=== PATIENT | female | born 1955 | race Caucasian/White ===

== ENCOUNTER 2023-02-28 17:24 | Emergency (ER) | payer OTHER, SELFPAY ==
[2023-02-28] VITALS (59 sets, daily range): BP systolic 121–174; BP diastolic 61–96; PULSE 104–121; RESP 13–38; TEMP 37.4–38.1; O2SAT 95–100; BMI 38.2
--- NOTE | 2023-02-28 17:43 | DI.RAD.S_ITS ---
PROCEDURE: XR CHEST 1V INDICATIONS: chest pain TECHNIQUE: One view of the chest was acquired. COMPARISON: None. FINDINGS: Surgical changes and devices: None. Lungs and pleura: Mild blunting of the left costophrenic angle may be secondary to atelectasis or a trace pleural effusion. There is mild bilateral interstitial prominence. No pneumothorax. Mediastinum: Cardiac silhouette is mildly enlarged. Bones and chest wall: No suspicious bony lesions. Overlying soft tissues appear unremarkable. IMPRESSION: Mild cardiomegaly and bilateral interstitial prominence are suspicious for mild edema. Suspected trace left pleural effusion. Approved by: Isaias Tang M.D. on 02/28/2023 at 18:47
[2023-02-28] MEDS: SODIUM CHLORIDE 0.9% 1,000 ML 1000 ML IV (18:09)
[2023-02-28 18:20] LABS: Add Manual Diff / Slide Review NO; Basophils Absolute Auto 100 /uL (0-100); Basophils Percent Auto 1.1 % (0-2); Eosinophils Absolute Auto 200 /uL (0-450); Eosinophils Percent Auto 2.4 % (2-4); Hematocrit 40.7 % (36-46); Hemoglobin 13.6 g/dL (12.0-16.0); Lymphocytes Absolute Auto 1100 /uL (1100-4500); Lymphocytes Percent Auto 14.3 % (25-40); Mean Corpuscular HGB Conc 33.4 % (30-36); Mean Corpuscular Hemoglobin 29.6 PG (26-34); Mean Corpuscular Volume 88.6 fL (80-100); Monocytes Absolute Auto 700 /uL (0-900); Monocytes Percent Auto 8.3 % (3-14); Neutrophils Absolute Auto 5900 /uL (1500-7000); Neutrophils Percent Auto 73.9 % (50-75); Platelet Count 225 X10^3/uL (150-400); Red Blood Cell Count 4.59 X10^6/uL (4.0-5.2); Red Cell Distribution Width 15.5 % (11.6-14.8)
--- NOTE | 2023-02-28 18:34 | ED_ITS ---
HPI - Chest Pain General Chief Complaint: Chest Pain Stated Complaint: Chest pain, pressure, SOB, legs weak Time Seen by Provider: 02/28/23 17:52 Source: patient Mode of arrival: Ambulatory Limitations: no limitations History of Present Illness HPI narrative: Patient is a 67-year-old female. She recently had a several day cross-country car ride. She comes in the emergency department today for evaluation of what was initially described as chest discomfort but an actual mellitus more epigastric discomfort. Is having pressure in this area. Does have some back discomfort with it. She is feeling short of breath and weakness in her legs. No fevers. No coughing. No nausea or vomiting. No change in urine or bowel movements. No skin rashes. Related Data Allergies Allergy/AdvReac Type Severity Reaction Status Date / Time No Known Drug Allergies Allergy Verified 02/28/23 17:33 Review of Systems Review of Systems ROS Unobtainable: All systems reviewed & are unremarkable except as noted in HPI and below Patient History Social History Smoking Status: Never smoker Smoking Status: Never smoker alcohol intake frequency: holidays/special occasions only Substance Use Type: does not use Exam Initial Vital Signs Initial Vital Signs: Vital Signs Temperature 100.5 F H 02/28/23 17:33 Pulse Rate 121 H 02/28/23 17:33 Respiratory Rate 18 02/28/23 17:33 Blood Pressure 165/89 H 02/28/23 17:33 Pulse Oximetry 97 02/28/23 17:33 Oxygen Delivery Method Room Air 02/28/23 17:33 HENMI Head: normal to inspection and normocephalic Resp Effort & Inspection: normal respiratory effort Auscultation: clear to auscultation bilaterally Cardio Rate: tachycardic Rhythm: regular rhythm GI Inspection: normal to inspection and non-distended Palpation: No firm, No guarding and tender (Epigastric region) Skin General: no rashes or lesions noted Neuro General: patient alert, patient awake, patient oriented x3 and moves all extremities Speech: speech normal Extrem General: capillary refill normal Psych Appearance: grossly normal and well kempt Course Orders Ordered: ED Orders 02/28/23 18:06 Blood Culture Stat 02/28/23 19:45 Comprehensive Metabolic Panel Stat D Dimer Stat Lipase Stat Magnesium Stat PTT Partial Thromboplastin Zan Stat Prothrombin Time INR Stat Troponin & CK Cardiac Panel Stat 02/28/23 20:11 Urinalysis and Microscopic Stat Urine Culture Stat 02/28/23 20:44 CT angio chest PE protocol Stat Discontinued Medications Aspirin (Aspirin 81 Mg Chew Tab) 324 mg PO NOW ONE Stop: 02/28/23 17:44 Last Admin: 02/28/23 21:46 Dose: Not Given Documented By: CLYDE Sodium Chloride (Normal Saline 0.9%) 1,000 mls @ 1,000 mls/hr IV BOLUS ONE Stop: 02/28/23 18:51 Last Infusion: 02/28/23 18:51 Dose: Infused Documented By: Admin: 02/28/23 18:09 Dose: 1,000 mls/hr Documented By: ERIKA Vital Signs Vital signs: Vital Signs - 8 hr 02/28/23 19:05 02/28/23 19:10 02/28/23 19:10 Temperature Pulse Rate 104 H 104 H Respiratory Rate 23 23 Blood Pressure 141/90 H Pulse Oximetry 98 98 Oxygen Delivery Method 02/28/23 19:15 02/28/23 19:20 02/28/23 19:20 Temperature Pulse Rate 104 H 104 H Respiratory Rate 23 23 Blood Pressure 142/84 H Pulse Oximetry 97 97 Oxygen Delivery Method 02/28/23 19:25 02/28/23 19:30 02/28/23 19:31 Temperature Pulse Rate 106 H 105 H 106 H Respiratory Rate 19 23 20 Blood Pressure Pulse Oximetry 99 97 97 Oxygen Delivery Method 02/28/23 19:31 02/28/23 19:35 02/28/23 19:40 Temperature Pulse Rate 108 H 108 H Respiratory Rate 18 24 Blood Pressure 121/83 Pulse Oximetry 97 Oxygen Delivery Method 02/28/23 19:45 02/28/23 19:46 02/28/23 19:46 Temperature Pulse Rate 109 H 109 H Respiratory Rate 18 Blood Pressure 143/85 H Pulse Oximetry 98 98 Oxygen Delivery Method 02/28/23 19:50 02/28/23 19:50 02/28/23 19:55 Temperature Pulse Rate 109 H 107 H Respiratory Rate Blood Pressure 133/83 Pulse Oximetry 97 98 Oxygen Delivery Method 02/28/23 20:00 02/28/23 20:00 02/28/23 20:10 Temperature Pulse Rate 107 H 111 H Respiratory Rate Blood Pressure 148/70 H Pulse Oximetry 98 96 Oxygen Delivery Method 02/28/23 20:11 02/28/23 20:11 02/28/23 20:15 Temperature Pulse Rate 109 H 108 H Respiratory Rate 24 25 H Blood Pressure 153/61 H Pulse Oximetry 100 98 Oxygen Delivery Method 02/28/23 20:20 02/28/23 20:25 02/28/23 20:30 Temperature Pulse Rate 108 H 108 H 109 H Respiratory Rate Blood Pressure Pulse Oximetry 98 97 97 Oxygen Delivery Method 02/28/23 20:35 02/28/23 20:40 02/28/23 20:45 Temperature Pulse Rate 108 H 109 H 111 H Respiratory Rate 24 Blood Pressure Pulse Oximetry 97 97 97 Oxygen Delivery Method 02/28/23 20:50 02/28/23 21:04 02/28/23 21:05 Temperature Pulse Rate 107 H 109 H 107 H Respiratory Rate 20 22 Blood Pressure Pulse Oximetry 96 99 95 Oxygen Delivery Method 02/28/23 21:10 02/28/23 21:15 02/28/23 21:20 Temperature Pulse Rate 107 H 106 H 107 H Respiratory Rate 24 21 Blood Pressure Pulse Oximetry 97 96 96 Oxygen Delivery Method 02/28/23 21:25 02/28/23 21:30 02/28/23 21:35 Temperature Pulse Rate 107 H 106 H 108 H Respiratory Rate 18 Blood Pressure Pulse Oximetry 97 95 95 Oxygen Delivery Method 02/28/23 21:40 02/28/23 21:45 02/28/23 21:50 Temperature Pulse Rate 108 H 106 H 106 H Respiratory Rate 25 H 25 H Blood Pressure Pulse Oximetry 96 95 96 Oxygen Delivery Method 02/28/23 21:55 02/28/23 21:58 02/28/23 21:58 Temperature Pulse Rate 106 H 107 H Respiratory Rate 25 H 24 Blood Pressure 152/81 H Pulse Oximetry 96 96 Oxygen Delivery Method 02/28/23 22:00 02/28/23 22:05 02/28/23 23:13 Temperature 99.4 F Pulse Rate 106 H 109 H 104 H Respiratory Rate 26 H 20 20 Blood Pressure 140/88 Pulse Oximetry 95 98 97 Oxygen Delivery Method Room Air MDM - Chest Pain Lab Data Attestation: I reviewed the patient's lab results. 02/28/23 18:00 02/28/23 19:45 Labs: Lab Results 02/28/23 02/28/2302/28/23 Range/Units 17:55 18:00 19:45 WBC 8.0 (4.5-11.0) X10^3/uL RBC 4.59 (4.0-5.2) X10^6/uL Hgb 13.6 (12.0-16.0) g/dL Hct 40.7 (36-46) % MCV 88.6 (80-100) fL MCH 29.6 (26-34) PG MCHC 33.4 (30-36) % RDW 15.5 H (11.6-14.8) % Plt Count 225 (150-400) X10^3/uL Neut % (Auto) 73.9 (50-75) % Lymph % (Auto) 14.3 L (25-40) % Pender % (Auto) 8.3 (3-14) % Eos % (Auto) 2.4 (2-4) % Baso % (Auto) 1.1 (0-2) % Neut # (Auto) 5900 (9361-0628) /uL Lymph # (Auto) 1100 (4753-6717) /uL Pender # (Auto) 700 (0-900) /uL Eos # (Auto) 200 (0-450) /uL Baso # (Auto) 100 (0-100) /uL PT 14.1 H (9.4-12.5) SECONDS INR 1.2 (0.9-1.3) APTT 26 (25.1-36.5) SECONDS D-Dimer 1747 H (<500) ng/ml Sodium 136 L (137-145) mmol/L Potassium 4.3 (3.4-5.1) mmol/L Chloride 105 (98-107) mmol/L Carbon Dioxide 25 (22-32) mmol/L BUN 22 H (7-17) mg/dL Creatinine 1.22 H (0.52-1.04) mg/dL Estimated GFR 49 L (>60) mL/min BUN/Creatinine Ratio 18.0 (6-22) Glucose 82 (80-110) mg/dL Lactate 1.8 (0.7-2.1) mmol/L Calcium 9.2 (8.4-10.2) mg/dL Magnesium 2.2 (1.6-2.3) mg/dL Total Bilirubin 1.1 (0.2-1.3) mg/dL AST 38 H (14-36) IU/L ALT 19 (<35) IU/L Alkaline Phosphatase 75 (38-126) U/L Total Creatine Kinase 55 (30-135) U/L Troponin I 0.029 (0.01-0.034) ng/mL Total Protein 7.0 (6.3-8.2) g/dL Albumin 3.9 (3.5-5.0) g/dL Globulin 3.1 (1.7-4.1) g/dL Albumin/Globulin Ratio 1.3 (1.0-2.8) Lipase 90 (23-300) U/L Procalcitonin 0.13 (<0.5) ng/mL Urine Color Urine Appearance Urine pH (4.5-8.0) Ur Specific [place] (1.000-1.035) Urine Protein (Negative) Urine Glucose (UA) (Negative) g/dL Urine Ketones (NEGATIVE) Urine Occult Blood (Negative) Urine Nitrate (Negative) Urine Bilirubin (NEGATIVE) Urine Urobilinogen (0.2) E.U./dL Ur Leukocyte Esterase (NEGATIVE) Urine RBC (0-5/HPF) Urine WBC (0-5/HPF) Ur Squamous Epith Cells (0-5/HPF) Urine Bacteria (None) Micro UA Comment Chlamy pneumoniae PCR Not detected (Not Detect) Adenovirus (PCR) Not detected (Not Detect) B.parapertussis DNA PCR Not detected (Not Detecte) Coronavirus OC43 (PCR) Not detected (Not Detect) Coronavirus HKU1 (PCR) Not detected (Not Detect) Coronavirus 229E (PCR) Not detected (Not Detect) SARS-CoV-2 (PCR) Not detected (Not Detecte) Coronavirus NL63 (PCR) Not detected (Not Detect) Human Metapneumovir PCR Not detected (Not Detect) Influenza Type A (PCR) Not detected (Not Detect) Influenza Type B (PCR) Not detected (Not Detect) M. pneumoniae (PCR) Not detected (Not Detect) Parainfluenza 1 (PCR) Not detected (Not Detect) Parainfluenza 2 (PCR) Not detected (Not Detect) Parainfluenza 3 (PCR) Not detected (Not Detect) Parainfluenza 4 (PCR) Not detected (Not Detect) RSV (PCR) Not detected (Not Detect) Entero/Rhino (PCR) Not detected (Not Detect) 02/28/23 Range/Units 20:11 WBC (4.5-11.0) X10^3/uL RBC (4.0-5.2) X10^6/uL Hgb (12.0-16.0) g/dL Hct (36-46) % MCV (80-100) fL MCH (26-34) PG MCHC (30-36) % RDW (11.6-14.8) % Plt Count (150-400) X10^3/uL Neut % (Auto) (50-75) % Lymph % (Auto) (25-40) % Pender % (Auto) (3-14) % Eos % (Auto) (2-4) % Baso % (Auto) (0-2) % Neut # (Auto) (5010-2284) /uL Lymph # (Auto) (1386-3853) /uL Pender # (Auto) (0-900) /uL Eos # (Auto) (0-450) /uL Baso # (Auto) (0-100) /uL PT (9.4-12.5) SECONDS INR (0.9-1.3) APTT (25.1-36.5) SECONDS D-Dimer (<500) ng/ml Sodium (137-145) mmol/L Potassium (3.4-5.1) mmol/L Chloride (98-107) mmol/L Carbon Dioxide (22-32) mmol/L BUN (7-17) mg/dL Creatinine (0.52-1.04) mg/dL Estimated GFR (>60) mL/min BUN/Creatinine Ratio (6-22) Glucose (80-110) mg/dL Lactate (0.7-2.1) mmol/L Calcium (8.4-10.2) mg/dL Magnesium (1.6-2.3) mg/dL Total Bilirubin (0.2-1.3) mg/dL AST (14-36) IU/L ALT (<35) IU/L Alkaline Phosphatase (38-126) U/L Total Creatine Kinase (30-135) U/L Troponin I (0.01-0.034) ng/mL Total Protein (6.3-8.2) g/dL Albumin (3.5-5.0) g/dL Globulin (1.7-4.1) g/dL Albumin/Globulin Ratio (1.0-2.8) Lipase (23-300) U/L Procalcitonin (<0.5) ng/mL Urine Color Yellow Urine Appearance Clear Urine pH 5.5 (4.5-8.0) Ur Specific [place] 1.020 (1.000-1.035) Urine Protein Negative (Negative) Urine Glucose (UA) Negative (Negative) g/dL Urine Ketones Negative (NEGATIVE) Urine Occult Blood Negative (Negative) Urine Nitrate Negative (Negative) Urine Bilirubin Negative (NEGATIVE) Urine Urobilinogen 0.2 (0.2) E.U./dL Ur Leukocyte Esterase Trace H (NEGATIVE) Urine RBC 0-1/hpf (0-5/HPF) Urine WBC 5-10/hpf H (0-5/HPF) Ur Squamous Epith Cells 1-5 /hpf (0-5/HPF) Urine Bacteria Few (2-10) H (None) Micro UA Comment Chlamy pneumoniae PCR (Not Detect) Adenovirus (PCR) (Not Detect) B.parapertussis DNA PCR (Not Detecte) Coronavirus OC43 (PCR) (Not Detect) Coronavirus HKU1 (PCR) (Not Detect) Coronavirus 229E (PCR) (Not Detect) SARS-CoV-2 (PCR) (Not Detecte) Coronavirus NL63 (PCR) (Not Detect) Human Metapneumovir PCR (Not Detect) Influenza Type A (PCR) (Not Detect) Influenza Type B (PCR) (Not Detect) M. pneumoniae (PCR) (Not Detect) Parainfluenza 1 (PCR) (Not Detect) Parainfluenza 2 (PCR) (Not Detect) Parainfluenza 3 (PCR) (Not Detect) Parainfluenza 4 (PCR) (Not Detect) RSV (PCR) (Not Detect) Entero/Rhino (PCR) (Not Detect) Imaging Data Chest x-ray: Radiologist's Impression: PROCEDURE: XR CHEST 1V INDICATIONS: chest pain TECHNIQUE: One view of the chest was acquired. COMPARISON: None. FINDINGS: Surgical changes and devices: None. Lungs and pleura: Mild blunting of the left costophrenic angle may be secondary to atelectasis or a trace pleural effusion. There is mild bilateral interstitial prominence. No pneumothorax. Mediastinum: Cardiac silhouette is mildly enlarged. Bones and chest wall: No suspicious bony lesions. Overlying soft tissues appear unremarkable. IMPRESSION: Mild cardiomegaly and bilateral interstitial prominence are suspicious for mild edema. Suspected trace left pleural effusion. CT scan - chest: Radiologist's Impression: PROCEDURE: CT ANGIO CHEST PE PROTOCOL INDICATIONS: Chest pain, shortness of breath, tachycardia TECHNIQUE: After the administration of intravenous contrast, 2 mm thick sections acquired from the pulmonary apices to the posterior costophrenic angles. 3-dimensional maximum intensity projection (MIP) coronal and sagittal reformats were then acquired through the thorax. For radiation dose reduction, the following was used: automated exposure control, adjustment of mA and/or kV according to patient size. COMPARISON: [facility], , XR CHEST 1V, 02/28/2023, 17:59. FINDINGS: Image quality: Diagnostic. Pulmonary arteries: Pulmonary arteries are normal in size, and demonstrate no intraluminal filling defects to suggest central pulmonary embolism. Lungs and pleura: Right middle lobe pulmonary nodule measuring 0.5 cm, (5/215). Mosaic attenuation. Mild dependent atelectasis. Small bilateral pleural effusions. No pneumothorax. Central and peripheral airways are patent. Mediastinum: Heart size is normal. Small pericardial effusion. Numerous enlarged mediastinal and hilar lymph nodes. -Anterior mediastinal mass measuring 4.2 cm, (4/64). Mass effect on the main pulmonary artery. -Subcarinal node measuring 2.2 cm, (4/70). -Left pericardial mass measuring 3.2 cm, (4/114). -Right hilar node measuring 1.8 cm, (4/72). Thoracic aorta is normal in caliber and enhancement. No aortic dissection. Esophagus is normal in caliber, without hiatal hernia. Bones and chest wall: No suspicious bony lesions. Ribs and thoracic spine appear intact throughout. No axillary adenopathy. Supraclavicular adenopathy. Left supraclavicular node measuring 2.2 cm, (4/12). No thyroid nodules which require sonographic follow up, per consensus guidelines. Upper Abdomen: Visualized upper abdominal solid organs appear normal in the early arterial phase of enhancement. IMPRESSION: 1. No pulmonary embolism. 2. Diffuse mosaic attenuation of the lung parenchyma. This could be due to pulmonary edema. Right middle lobe pulmonary nodule measuring 0.5 cm. 3. Small bilateral pleural effusions. Small pericardial effusion. 4. Extensive adenopathy supraclavicular, mediastinal, and hilar. Confluent adenopathy or mediastinal mass with mass effect on the main pulmonary artery. Favor lymphoma or metastatic disease. Differential also includes teratoma or metastatic thymoma. Comment: Findings were discussed with Freeman Harris at time of dictation. ECG Data Attestation: I personally reviewed and interpreted this ECG as follows: Interpretation: Sinus tachycardia Ventricular rate 110 Normal axis Normal QRS Occasional PVC No ST T wave changes MDM Narrative Medical decision making narrative: Patient had a fairly extensive workup here in the emergency department. There was no signs of infection. I have low suspicion for ACS. Low suspicion for gallbladder pathology. CT scan of the chest just so multiple mediastinal adenopathy concerning for lymphoma. There is other potential possibilities but lymphoma would be the most concerning cause of the findings. I do suspect that this is most likely the source of her presenting symptoms today. There was no indication for antibiotics. I did discuss the CT scan with her. They are visiting the area. She was given a copy of her labs and CT scan. I advised that she contact her primary doctor back home so that when she returns home in the next several days/week she could have further workup for these findings. We did discuss specific return pathology. No indication for admission to the hospital today. Patient and was at bedside expressed understanding and agreement with plan. Discharge Plan Departure Patient Disposition: Home Clinical Impression: Mediastinal adenopathy Activity Restrictions/Additional Instructions: I recommend that tomorrow you start the process of making a follow-up appointment with your primary doctor. The findings of the CT scan today are concerning and do need follow-up and further evaluation. Recommend that you take the copies of your labs and the imaging studies that were done today to your primary doctor when you follow-up. Return to an emergency department for new or worsening symptoms. Referrals: Doctor Graham MD [Primary Care Provider] - Stand Alone Forms: Patient Portal/API
[2023-02-28 18:44] LABS: Procalcitonin 0.13 ng/mL (<0.5)
[2023-02-28 19:00] LABS: Adenovirus Not Detected (Not Detect); B. parapertussis Not Detected (Not Detecte); Bordetella pertussis Not Detected (Not Detect); Chlamydophila pneumoniae Not Detected (Not Detect); Coronavirus 229E Not Detected (Not Detect); Coronavirus HKU1 Not Detected (Not Detect); Coronavirus NL 63 Not Detected (Not Detect); Coronavirus OC43 Not Detected (Not Detect); Human Metapneumovirus Not Detected (Not Detect); Human Rhinovirus/Enterovirus Not Detected (Not Detect); Influenza A Not Detected (Not Detect); Influenza B Not Detected (Not Detect); Mycoplasma pneumoniae Not Detected (Not Detect); Parainfluenza Virus 1 Not Detected (Not Detect); Parainfluenza Virus 2 Not Detected (Not Detect); Parainfluenza Virus 3 Not Detected (Not Detect); Parainfluenza Virus 4 Not Detected (Not Detect); Respiratory Syncytial Virus Not Detected (Not Detect); SARS- CoV-2 Not Detected (Not Detecte)
[2023-02-28 19:01] LABS: Lactate (Lactic Acid) 1.8 mmol/L (0.7-2.1)
[2023-02-28 20:13] LABS: Alanine Aminotransferase 19 IU/L (<35); Albumin 3.9 g/dL (3.5-5.0); Albumin Globulin Ratio 1.3 (1.0-2.8); Alkaline Phosphatase 75 U/L (38-126); Aspartate Aminotransferase 38 IU/L (14-36); Bilirubin Total 1.1 mg/dL (0.2-1.3); Blood Urea Nitrogen 22 mg/dL (7-17); Calcium 9.2 mg/dL (8.4-10.2); Carbon Dioxide 25 mmol/L (22-32); Chloride 105 mmol/L (98-107); Creatine Kinase 55 U/L (30-135); Estimated Glomerular Filt Rate 49 mL/min (>60); Globulin 3.1 g/dL (1.7-4.1); Glucose 82 mg/dL (80-110); HEMOLYSIS 21 (0-50); Lipase 90 U/L (23-300); Magnesium 2.2 mg/dL (1.6-2.3); Potassium 4.3 mmol/L (3.4-5.1); Sodium 136 mmol/L (137-145)
[2023-02-28 20:16] LABS: PTT Partial Thromboplastin Tim 26 SECONDS (25.1-36.5)
[2023-02-28 20:17] LABS: INR 1.2 (0.9-1.3); Prothrombin Time 14.1 SECONDS (9.4-12.5)
[2023-02-28 20:24] LABS: D Dimer 1747 ng/ml (<500); Troponin I 0.029 ng/mL (0.01-0.034)
[2023-02-28 20:28] LABS: Appearance Urine UA CLEAR; Bilirubin Urine UA NEGATIVE (NEGATIVE); Color Urine UA YELLOW; Glucose Urine UA NEGATIVE (Negative); Ketones Urine UA NEGATIVE (NEGATIVE); Leukocyte Esterase Urine UA TRACE (NEGATIVE); Nitrite Urine UA NEGATIVE (Negative); Occult Blood Urine UA NEGATIVE (Negative); Protein Urine UA NEGATIVE (Negative); Urobilinogen Urine UA 0.2 E.U./dL (0.2)
[2023-02-28 20:31] LABS: pH Urine UA 5.5 (4.5-8.0)
[2023-02-28 20:37] LABS: Bacteria Urine Few (2-10); RBC Urine 0-1/HPF (0-5/HPF); Squamous Epithelial Cell Urine 1-5 /HPF (0-5/HPF); WBC Urine 5-10/HPF (0-5/HPF)
--- NOTE | 2023-02-28 20:44 | DI.CT.S_ITS ---
PROCEDURE: CT ANGIO CHEST PE PROTOCOL INDICATIONS: Chest pain, shortness of breath, tachycardia TECHNIQUE: After the administration of intravenous contrast, 2 mm thick sections acquired from the pulmonary apices to the posterior costophrenic angles. 3-dimensional maximum intensity projection (MIP) coronal and sagittal reformats were then acquired through the thorax. For radiation dose reduction, the following was used: automated exposure control, adjustment of mA and/or kV according to patient size. COMPARISON: [facility], CR, XR CHEST 1V, 02/28/2023, 17:59. FINDINGS: Image quality: Diagnostic. Pulmonary arteries: Pulmonary arteries are normal in size, and demonstrate no intraluminal filling defects to suggest central pulmonary embolism. Lungs and pleura: Right middle lobe pulmonary nodule measuring 0.5 cm, (5/215). Mosaic attenuation. Mild dependent atelectasis. Small bilateral pleural effusions. No pneumothorax. Central and peripheral airways are patent. Mediastinum: Heart size is normal. Small pericardial effusion. Numerous enlarged mediastinal and hilar lymph nodes. -Anterior mediastinal mass measuring 4.2 cm, (4/64). Mass effect on the main pulmonary artery. -Subcarinal node measuring 2.2 cm, (4/70). -Left pericardial mass measuring 3.2 cm, (4/114). -Right hilar node measuring 1.8 cm, (4/72). Thoracic aorta is normal in caliber and enhancement. No aortic dissection. Esophagus is normal in caliber, without hiatal hernia. Bones and chest wall: No suspicious bony lesions. Ribs and thoracic spine appear intact throughout. No axillary adenopathy. Supraclavicular adenopathy. Left supraclavicular node measuring 2.2 cm, (4/12). No thyroid nodules which require sonographic follow up, per consensus guidelines. Upper Abdomen: Visualized upper abdominal solid organs appear normal in the early arterial phase of enhancement. IMPRESSION: 1. No pulmonary embolism. 2. Diffuse mosaic attenuation of the lung parenchyma. This could be due to pulmonary edema. Right middle lobe pulmonary nodule measuring 0.5 cm. 3. Small bilateral pleural effusions. Small pericardial effusion. 4. Extensive adenopathy supraclavicular, mediastinal, and hilar. Confluent adenopathy or mediastinal mass with mass effect on the main pulmonary artery. Favor lymphoma or metastatic disease. Differential also includes teratoma or metastatic thymoma. Comment: Findings were discussed with Freeman Harris at time of dictation. Dictated by: Dhruv Nogueira M.D. on 02/28/2023 at 22:14 Approved by: Dhruv Nogueira M.D. on 02/28/2023 at 22:31
== END 2023-02-28 23:21 | disposition home or self-care (01) ==
PROVIDERS: Emergency Medicine; Emergency Provider Emergency Medicine
DX: R59.0 Localized enlarged lymph nodes (principal)
CPT/HCPCS: 36415; 71045; 71275; 80053; 81001; 82550; 83605; 83690; 83735; 84145; 84484; 85025; 85379; 85610; 85730; 87040; 87086; 87633; 93005; 99284; Q9967

== ENCOUNTER 2023-03-02 07:00 | Emergency (ER) | payer OTHER, SELFPAY ==
[2023-03-02] VITALS (35 sets, daily range): BP systolic 129–194; BP diastolic 63–98; PULSE 60–117; RESP 19–33; TEMP 36.5; O2SAT 84–100; BMI 39.9
--- NOTE | 2023-03-02 07:18 | DI.RAD.S_ITS ---
PROCEDURE: XR CHEST 1V INDICATIONS: dyspnea TECHNIQUE: One view of the chest was acquired. COMPARISON: [facility], CR, XR CHEST 1V, 02/28/2023, 17:59. FINDINGS: Surgical changes and devices: None. Lungs and pleura: Small left pleural effusion. Mediastinum: Mediastinal contours appear normal. Heart size is normal. Bones and chest wall: No suspicious bony lesions. Overlying soft tissues appear unremarkable. IMPRESSION: Small left pleural effusion. Dictated by: Mohit Marshall M.D. on 03/02/2023 at 8:52 Approved by: Mohit Marshall M.D. on 03/02/2023 at 8:52
[2023-03-02 07:31] LABS: Add Manual Diff / Slide Review NO; Basophils Absolute Auto 100 /uL (0-100); Basophils Percent Auto 0.8 % (0-2); Eosinophils Absolute Auto 200 /uL (0-450); Eosinophils Percent Auto 2.4 % (2-4); Hematocrit 41.7 % (36-46); Hemoglobin 14.1 g/dL (12.0-16.0); Lymphocytes Absolute Auto 700 /uL (1100-4500); Lymphocytes Percent Auto 9.6 % (25-40); Mean Corpuscular HGB Conc 33.7 % (30-36); Monocytes Absolute Auto 600 /uL (0-900); Monocytes Percent Auto 7.5 % (3-14); Neutrophils Absolute Auto 5800 /uL (1500-7000); Neutrophils Percent Auto 79.7 % (50-75); Platelet Count 210 X10^3/uL (150-400); Red Blood Cell Count 4.68 X10^6/uL (4.0-5.2); Red Cell Distribution Width 15.5 % (11.6-14.8); White Blood Cell Count 7.3 X10^3/uL (4.5-11.0)
[2023-03-02 07:43] LABS: Alanine Aminotransferase 20 IU/L (<35); Albumin 4.3 g/dL (3.5-5.0); Albumin Globulin Ratio 1.2 (1.0-2.8); Alkaline Phosphatase 80 U/L (38-126); Aspartate Aminotransferase 39 IU/L (14-36); BUN Creatinine Ratio 16.1 (6-22); Bilirubin Total 1.3 mg/dL (0.2-1.3); Blood Urea Nitrogen 20 mg/dL (7-17); Calcium 9.8 mg/dL (8.4-10.2); Carbon Dioxide 25 mmol/L (22-32); Chloride 103 mmol/L (98-107); Creatine Kinase 62 U/L (30-135); Estimated Glomerular Filt Rate 48 mL/min (>60); Globulin 3.6 g/dL (1.7-4.1); Glucose 136 mg/dL (80-110); HEMOLYSIS < 15 (0-50); Potassium 4.4 mmol/L (3.4-5.1); Sodium 136 mmol/L (137-145); Total Protein 7.9 g/dL (6.3-8.2)
[2023-03-02 07:54] LABS: NT-proBNP (BNP-Adult 18+) 2020 pg/mL (<125); Troponin I 0.015 ng/mL (0.01-0.034)
--- NOTE | 2023-03-02 08:04 | ED.CHESTPAIN ---
HPI - Chest Pain General Chief Complaint: Chest Pain Stated Complaint: diff breathing t-3 Time Seen by Provider: 03/02/23 07:05 Source: patient Mode of arrival: Ambulatory Limitations: no limitations History of Present Illness HPI narrative: 67-year-old with past medical history of hypertension, hyperlipidemia, yke-[id number]-[id number] diabetes presents by private vehicle from home for continuing chest pain and shortness of breath. Patient was seen in our emergency department 2 days prior for same. At that time she underwent laboratory work, chest x-ray, CT angio. At that time troponins were within normal limits, creatinine 1.22, respiratory panel negative. EKG showed T-wave inversions in leads 1, aVL. The CT angio showed no pulmonary embolism, probable pulmonary edema, small bilateral pleural effusions, extensive adenopathy in the mediastinal region with some mass effect on the main pulmonary artery. This was thought to be lymphoma or metastatic disease. Patient was informed of her results and at that time was discharged home. Patient returns today because her chest pain is persistent and her shortness of breath seems to be getting worse. 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 Related Data Allergies Allergy/AdvReac Type Severity Reaction Status Date / Time No Known Drug Allergies Allergy Verified 03/02/23 07:27 Review of Systems Review of Systems Narrative: Negative except as noted above Patient History Social History Smoking Status: Never smoker Smoking Status: Never smoker alcohol intake frequency: holidays/special occasions only Substance Use Type: does not use Exam Initial Vital Signs Initial Vital Signs: Vital Signs Pulse Rate 117 H 03/02/23 07:04 Pulse Oximetry 98 03/02/23 07:04 Oxygen Delivery Method Room Air 03/02/23 07:04 Const: Awake, alert, ill-appearing, nontoxic, obese Eyes: PERRL, EOMI, conjunctiva normal ENT: Atraumatic, dentition normal, mucous membranes moist Cardiac: Tachycardia, regular rhythm RESP: Mild to moderate work of breathing, tachypnea, able to speak in complete sentences GI: Atraumatic, soft, nontender, nondistended, no rebound, no guarding MSK: Atraumatic, full range of motion, pulses equal, no edema Skin: Warm, Dry, intact, no rashes Neuro: AO x3, CN II-XII grossly intact, moves all extremities Psych: affect normal, mood normal, not suicidal, not homicidal Course Orders Ordered: Discontinued Medications Furosemide (Furosemide 40 Mg/4 Ml Vial) 40 mg IV NOW ONE Stop: 03/02/23 08:03 Last Admin: 03/02/23 09:05 Dose: 40 mg Documented By: ERIKA Vital Signs Vital signs: Vital Signs - 8 hr 03/02/23 09:27 03/02/23 09:27 03/02/23 09:30 Pulse Rate 104 H Respiratory Rate 29 H Blood Pressure 168/92 H 165/87 H Pulse Oximetry 99 03/02/23 09:30 03/02/23 09:51 03/02/23 09:51 Pulse Rate 102 H 112 H Respiratory Rate 27 H Blood Pressure 186/97 H Pulse Oximetry 98 100 03/02/23 09:54 03/02/23 10:00 03/02/23 10:00 Pulse Rate 117 H 105 H Respiratory Rate 32 H 29 H Blood Pressure 147/83 H Pulse Oximetry 95 97 03/02/23 10:29 03/02/23 10:29 03/02/23 10:30 Pulse Rate 109 H Respiratory Rate 33 H Blood Pressure 171/88 H 151/79 H Pulse Oximetry 99 03/02/23 10:30 03/02/23 11:02 03/02/23 11:02 Pulse Rate 107 H 109 H Respiratory Rate 26 H 24 Blood Pressure 137/93 H Pulse Oximetry 99 98 03/02/23 11:30 03/02/23 11:30 03/02/23 12:00 Pulse Rate 109 H 116 H Respiratory Rate 19 Blood Pressure 147/81 H Pulse Oximetry 96 97 03/02/23 12:30 03/02/23 12:51 03/02/23 12:51 Pulse Rate 112 H 114 H Respiratory Rate 29 H 20 Blood Pressure 161/96 H Pulse Oximetry 95 98 03/02/23 13:00 03/02/23 13:00 03/02/23 13:30 Pulse Rate 111 H Respiratory Rate 28 H Blood Pressure 146/81 H 144/88 H Pulse Oximetry 95 03/02/23 13:30 03/02/23 14:07 03/02/23 14:30 Pulse Rate 109 H 115 H 112 H Respiratory Rate 30 H 25 H Blood Pressure Pulse Oximetry 94 87 L 97 03/02/23 15:10 03/02/23 15:30 03/02/23 16:00 Pulse Rate 113 H 110 H 107 H Respiratory Rate Blood Pressure Pulse Oximetry 84 L 95 97 MDM - Chest Pain Differential Diagnosis Differential diagnosis: Likely fracture of rib, pneumothorax and stable angina Lab Data 03/02/23 07:15 03/02/23 07:15 Labs: Lab Results 03/02/23 Range/Units 07:15 WBC 7.3 (4.5-11.0) X10^3/uL RBC 4.68 (4.0-5.2) X10^6/uL Hgb 14.1 (12.0-16.0) g/dL Hct 41.7 (36-46) % MCV 89.0 (80-100) fL MCH 30.0 (26-34) PG MCHC 33.7 (30-36) % RDW 15.5 H (11.6-14.8) % Plt Count 210 (150-400) X10^3/uL Neut % (Auto) 79.7 H (50-75) % Lymph % (Auto) 9.6 L (25-40) % Bland % (Auto) 7.5 (3-14) % Eos % (Auto) 2.4 (2-4) % Baso % (Auto) 0.8 (0-2) % Neut # (Auto) 5800 (1694-0552) /uL Lymph # (Auto) 700 L (5021-4316) /uL Bland # (Auto) 600 (0-900) /uL Eos # (Auto) 200 (0-450) /uL Baso # (Auto) 100 (0-100) /uL Sodium 136 L (137-145) mmol/L Potassium 4.4 (3.4-5.1) mmol/L Chloride 103 (98-107) mmol/L Carbon Dioxide 25 (22-32) mmol/L BUN 20 H (7-17) mg/dL Creatinine 1.24 H (0.52-1.04) mg/dL Estimated GFR 48 L (>60) mL/min BUN/Creatinine Ratio 16.1 (6-22) Glucose 136 H (80-110) mg/dL Calcium 9.8 (8.4-10.2) mg/dL Total Bilirubin 1.3 (0.2-1.3) mg/dL AST 39 H (14-36) IU/L ALT 20 (<35) IU/L Alkaline Phosphatase 80 (38-126) U/L Total Creatine Kinase 62 (30-135) U/L Troponin I 0.015 (0.01-0.034) ng/mL NT-Pro-B Natriuret Pep 2020 H (<125) pg/mL Total Protein 7.9 (6.3-8.2) g/dL Albumin 4.3 (3.5-5.0) g/dL Globulin 3.6 (1.7-4.1) g/dL Albumin/Globulin Ratio 1.2 (1.0-2.8) ECG Data Interpretation: Sinus tachycardia, T-wave inversions leads 1, aVL, no change from prior MDM Narrative Medical decision making narrative: Return visit for shortness of breath and chest pain. Patient's vitals on presentation are similar to presentation 2 days ago. Patient has diffuse lymphadenopathy, mediastinal mass that has some mild mass effect on the main pulmonary artery. Since patient's last CT angio was 2 days ago I do not see any utility in repeating the skin at this time, but we will repeat chest x-ray and laboratory work. Repeat EKG is unchanged from prior. Laboratory work is also largely unchanged. Troponin 0.015 (0.029 on 02/28). Chest x-ray on my review seems to show a slightly worse pleural effusion. Pleural effusion also seen on CT from 2 days prior. Patient was given a dose of Lasix, ambulated throughout the hallway, and she was able to maintain saturations greater than 90% on room air. I discussed the case with Cardiology, who recommended an echocardiogram and stress test, however recommended that patient be in a location with oncology services as her chest pain is also quite possibly related to her mediastinal mass pressing on her pulmonary artery. Patient and her are amenable to transfer at this time to higher level of care. Discharge Plan Departure Patient Disposition: [facility] Clinical Impression: Chest pain, Acute dyspnea, Mass of mediastinum, Lymphadenopathy Referrals: Miscellaneous,DoctorMD [Primary Care Provider] -
[2023-03-02] MEDS: FUROSEMIDE 40 MG/4 ML VIAL IV (09:05)
--- NOTE | 2023-03-02 15:06 | PC.NURSE ---
Addendum entered by Yohana Bañuelos CNA 03/02/23 15:51: 1524- [facility], spoke to Ary, on the waitlist Original Note: Hospital calls for transfer of patient CHF and a mediastinal mass 1041- [facility], spoke with Anita, on waitlist 1501- [facility], spoke to Jono, on waitlist 1504- [facility], spoke to Merle, they are not adding anyone to the waitlist
--- NOTE | 2023-03-02 18:59 | PC.NURSE ---
Report called to May JUÁREZ at [facility]. Awaiting [facility]
== END 2023-03-02 19:20 | disposition short-term general hospital (02) ==
PROVIDERS: Emergency Provider Emergency Medicine
DX: R07.9 Chest pain, unspecified (principal); J98.59 Other diseases of mediastinum, not elsewhere classified; J90 Pleural effusion, not elsewhere classified; R59.1 Generalized enlarged lymph nodes; E11.9 Type 2 diabetes mellitus without complications; I10 Essential (primary) hypertension; E78.5 Hyperlipidemia, unspecified
CPT/HCPCS: 36415; 71045; 80053; 82550; 83880; 84484; 85025; 87040; 93005; 96374; 99284; J1940